=== PATIENT | female | born 1950 | race American Indian/Alaskan Native ===

== ENCOUNTER 2018-08-30 10:27 | Outpatient (CLI) | payer MEDICARE, OTHER ==
--- NOTE | 2018-08-31 08:55 | Mammography Report ---
BILATERAL MAMMOGRAM: FINDINGS: There are scattered fibroglandular densities (approximately 25%-50% glandular). No mass, distortion, suspicious calcification, or skin change is seen. There is no significant change when compared to prior examination in April 2016. CAD was utilized. IMPRESSION: Negative mammogram. There is no mammographic evidence of malignancy. RECOMMENDATION: Follow-up per ACS guidelines. BI-RADS CATEGORY: 1 = Negative ACR BI-RADS MAMMOGRAPHIC CODES: 0 = Needs additional imaging evaluation; 1 = Negative; 2 = Benign; 3 = Probably benign; 4 = Suspicious; 5 = Malignant; 6 = Known biopsy-proven malignancy COMMENT: 1. Dense breast tissue, i.e., adenosis, fibrocystic changes, etc., may obscure an underlying neoplasm. 2. Approximately 10% of cancers are not detected with mammography. 3. A negative mammography report should not delay biopsy if a clinically suspicious mass is present. COMMENT: Patient follow-up letters are generated in [employer]
== END 2018-08-30 10:28 | disposition home or self-care (01) ==
LOC: MAMMO 10:27
PROVIDERS: ATTEND Family Medicine Adult Medicine
DX: Z12.31 Encounter for screening mammogram for malignant neoplasm of breast (principal)
CPT/HCPCS: 77067

== ENCOUNTER 2020-02-22 10:24 | Outpatient (CLI) | payer MEDICARE, OTHER ==
--- NOTE | 2020-02-23 08:54 | Mammography Report ---
DIGITAL SCREENING MAMMOGRAM WITH CAD, 02/22/2020 INDICATION: Routine screening mammography. SCREENING MAMMO TECHNIQUE: Digital bilateral 2D mammography was obtained in the craniocaudal and mediolateral obliq ue projections. This examination was interpreted with the benefit of Computer-Aided Detection analysi s. COMPARISON: 08/30/2018 FINDINGS: Breast Density: There are scattered areas of fibroglandular density. There is no evidence of dominant mass, suspicious calcifications or architectural distortion in eithe r breast. Benign-appearing right calcifications are stable. IMPRESSION: No evidence of malignancy Follow up recommendation: Routine yearly BI-RADS Category 2: Benign. A "normal" or negative report should not discourage follow up or biopsy of a clinically significant f inding. A written summary of these findings will be mailed to the patient. The patient will be entered into a mammography reporting system which will generate a reminder letter for the patient's next appointmen t at the appropriate interval. The [employer] recommends yearly mammograms starting at age 40 and continuing as l shekhar as a woman is in good health. Breast MRI is recommended for women with an approximate 20-25% or greater lifetime risk of breast cancer, including women with a strong family history of breast or ova brandie cancer or who have been treated for Hodgkin's disease. Signer Name: Devonte Sharma MD Signed: 02/23/2020 8:49 AM Workstation Name: [email or web address]
== END 2020-02-22 10:25 | disposition home or self-care (01) ==
LOC: MAMMO 10:24
PROVIDERS: ATTEND Family Medicine Adult Medicine
DX: Z12.31 Encounter for screening mammogram for malignant neoplasm of breast (principal)
CPT/HCPCS: 77067

== ENCOUNTER 2020-11-07 16:18 | Emergency (ER) | payer MEDICARE, OTHER ==
--- NOTE | 2020-11-07 20:13 | Emergency Department Report ---
ED General Adult HPI - General Chief complaint: Extremity Problem,Nontraumatic Stated complaint: MUSCLE CRAMPS/RU LEGS/DRAINAGE Time Seen by Provider: 11/07/20 20:06 Source: patient Mode of arrival: Ambulatory Limitations: No Limitations - History of Present Illness Initial comments: 69-year-old female patient with history of [place] presents to the emergency department with complaints of ongoing bilateral lower extremity redness/swelling/drainage for several months. Patient has reportedly been evaluated by 5 different physicians for this ongoing problem. She was seen at a local urgent care facility last week, who instructed her to come to the emergency department. She has been prescribed steroids and antibiotics for this issue without improvement. She underwent arterial duplex sonography of her lower extremities, which was unremarkable. Denies fever, chills, chest pain, paresthesias, numbness, weakness, abnormal bleeding/bruising. Denies all other complaints at this time. Severity scale (0 -10): 10 - Related Data Previous Rx's Medication Instructions Recorded Last Taken Type RX: Doxycycline Hyclate 100 mg PO BID 7 Days tablet. 11/07/20 Unknown Rx RX: Naproxen 500 mg PO BID #20 tablet 11/07/20 Unknown Rx Allergies Allergy/AdvReac Type Severity Reaction Status Date / Time No Known Allergies Allergy Unverified 09/26/14 13:42 ED Review of Systems ROS: Stated complaint: MUSCLE CRAMPS/RU LEGS/DRAINAGE Other details as noted in HPI Other: GENERAL: Negative for fever, chills, weight change, anorexia, fatigue. ENT: Negative for ear pain, difficulty hearing, sore throat, nasal congestion, epistaxis. CARDIOVASCULAR: Negative for chest pain, palpitations, lower extremity swelling. PULMONARY: Negative for cough, dyspnea, wheezing, orthopnea, cyanosis. GASTROINTESTINAL: Negative for abdominal pain, nausea, vomiting, diarrhea, constipation. MUSCULOSKELETAL: Negative for joint pain, joint swelling, myalgias, back pain, neck pain. NEUROLOGICAL: Negative for headache, seizure, syncope, paresthesias, weakness. INTEGUMENTARY: Positive for redness/swelling/drainage. HEMATOLOGICAL: Negative for hemoptysis, hematemesis, hematochezia, hematuria. PSYCHIATRIC: Negative for hallucinations, suicidal ideation, homicidal ideation, anxiety, depression. ED Past Medical Hx - Past Medical History Previous Medical History?: Yes - Surgical History Additional Surgical History: back surgery - Medications Home Medications: Home Medications Medication Instructions Recorded Confirmed Last Taken Type RX: Doxycycline Hyclate 100 mg PO BID 7 Days tablet. 11/07/20 Unknown Rx RX: Naproxen 500 mg PO BID #20 tablet 11/07/20 Unknown Rx ED Physical Exam - General Limitations: No Limitations - Other Other exam information: General: Awake, appropriately interactive, no acute distress. Neck: Supple. Full range of motion intact. Cardiovascular: Regular rate and rhythm. Normal peripheral perfusion. Pulmonary: Clear to auscultation bilaterally. No respiratory distress. Patient is speaking normally without use of accessory muscles. Skin: Bilateral lower extremity edema with diffuse erythema and multiple chronic wounds to the anterior aspect of the lower extremities with serous drainage present. No crepitus. No necrosis. Pain is appropriately proportional to exam findings. Distal neurovascular and motor/sensory function intact. Brisk capillary refill. Dorsalis pedis pulses equal and present. Neurological: No facial asymmetry. Speech is clear. Follows commands. Patient is alert and oriented. Musculoskeletal: Moves all four extremities spontaneously with normal range of motion. Psych: Cooperative. Appropriate mood and affect. ED Course Vital Signs 11/07/20 18:29 Temperature 99.1 F Pulse Rate 106 H Respiratory 18 Rate Blood Pressure 173/72 [Right] O2 Sat by Pulse 96 Oximetry ED Medical Decision Making - Medical Decision Making Differential diagnosis including but not limited to: necrotizing soft tissue infection, abscess, cellulitis, erysipelas, pyoderma gangrenosum, arterial occlusion, deep vein thrombosis, venous stasis ulcers Patient presents to the emergency department with complaints of chronic lower extremity wounds. This is patient's sixth evaluation for this issue. She has been seen by primary care, cardiology, dermatology, and urgent care. She is afebrile, hemodynamically stable, ambulatory without assistance, neurovascularly intact. Initial tachycardia resolved without intervention. Repeat heart rate 88 bpm. Recent arterial duplex sonography of bilateral lower extremities was unremarkable. Patient states she has not been evaluated for deep vein thrombosis; venous duplex sonography in the emergency department without evidence of DVT. Fingerstick glucose obtained for evaluation of possible concomitant diabetes; BGL within normal limits. Patient has been applying topical steroids and taking Keflex with limited relief. She will be prescribed a short course of Doxycycline for MRSA coverage and referred to wound clinic for further evaluation and definitive management. Cultures obtained and wound dressings changed in the emergency department. Patient expressed understanding and is agreeable to plan of care. Strict return precautions provided. Repeat exam is unremarkable and benign. History, exam, diagnostic testing, and current condition do not suggest worrisome pathology to warrant further testing, continued ED treatment, admission, or surgical evaluation at this point. Given the low probability of a significant medical illness, it would be more likely to result in harm than benefit to perform further testing at this stage. Discussed findings, presumptive diagnosis, need for follow-up and specific signs/symptoms that should prompt immediate return to the emergency department. Instructions were explained in detail to the patient in addition to giving written discharge information. Patient expressed understanding and was given the opportunity to ask questions, all of which were satisfactorily answered prior to discharge home. Of note, patient's blood pressure was noted to be elevated in the emergency department. Patient reports no prior history of hypertension. Specifically den ies chest pain, shortness of breath, palpitations, syncope, headache, vision changes. Neurological exam is nonfocal and remainder of vital signs are stable. No clinical indication for further diagnostic work-up and/or initiation of antihypertensive therapy at this time per ACEP asymptomatic hypertension guidelines. Patient was encouraged to follow-up with primary care provider for blood pressure recheck. Lifestyle modifications recommended. Critical care attestation.: If time is entered above; I have spent that time in minutes in the direct care of this critically ill patient, excluding procedure time. ED Disposition Clinical Impression: Chronic wound of extremity, Elevated blood pressure reading without diagnosis of hypertension Disposition: DC-01 TO HOME OR SELFCARE Is pt being admited?: No Does the pt Need Aspirin: No Condition: Stable Instructions: Wound Care, Adult Additional Instructions: Take Tylenol every 4 hours as needed for pain. Take Naprosyn twice daily with food as needed for pain. Take Doxycycline with food as directed. Avoid prolonged sun exposure while taking this medication. Reduce your dietary sodium intake. Exercise daily. Follow-up with your primary care provider for wound re-evaluation and blood pressure recheck. Call tomorrow to schedule an appointment. See referral information below. Follow-up with general surgeon and/or wound care for further evaluation and definitive management. Call tomorrow to schedule an appointment. See referral information below. Return to the emergency department immediately for new or worsening symptoms. Prescriptions: RX: Doxycycline Hyclate 100 mg PO BID 7 Days tablet. RX: Naproxen 500 mg PO BID #20 tablet Referrals: PRIMARY CAREMD [Primary Care Provider] - 3-5 Days MARTIN HYATT MD [Staff Physician] - 3-5 Days [facility] [Outside] - 3-5 Days Time of Disposition: 23:11
--- NOTE | 2020-11-07 22:29 | Vascular Lab Report ---
DUPLEX DOPPLER LOWER EXTREMITY VEINS, BILATERAL INDICATION / CLINICAL INFORMATION: pain/swelling bilat legs. TECHNIQUE: Duplex doppler imaging was performed through the veins of both lower extremities using venous neville nahum and other maneuvers. COMPARISON: None available. FINDINGS: RIGHT COMMON FEMORAL VEIN: Negative. RIGHT FEMORAL VEIN: Negative. RIGHT POPLITEAL VEIN: Negative. RIGHT CALF VEINS: Negative. LEFT COMMON FEMORAL VEIN: Negative. LEFT FEMORAL VEIN: Negative. LEFT POPLITEAL VEIN: Negative. LEFT CALF VEINS: Negative. ADDITIONAL FINDINGS: Swelling and edema noted of the distal lower extremities minimally limits evalua tion. IMPRESSION: 1. No sonographic evidence for DVT in the visualized vessels of bilateral lower extremity. Signer Name: Alvarado Sousa MD Signed: 11/07/2020 10:24 PM Workstation Name: [id number]
[2020-11-08 02:14] VITALS: BP 175/65
== END 2020-11-08 02:14 | disposition home or self-care (01) ==
LOC: ED 16:18
DX: L97.929 Non-pressure chronic ulcer of unspecified part of left lower leg with unspecified severity (principal); L97.919 Non-pressure chronic ulcer of unspecified part of right lower leg with unspecified severity; R03.0 Elevated blood-pressure reading, without diagnosis of hypertension; Z98.890 Other specified postprocedural states; Z79.899 Other long term (current) drug therapy
CPT/HCPCS: 82962; 87076; 87116; 87186; 93970

== ENCOUNTER 2020-11-11 11:18 | Outpatient (CLI) | payer MEDICARE, OTHER ==
[2020-11-11] MEDS ORDERED: LIDOCAINE (4%) 40 MG/ML TOPICAL SOLN 50 ML BOTTLE TP ONE (11:26)
== END 2020-11-11 11:19 | disposition home or self-care (01) ==
LOC: WOUND 11:18
PROVIDERS: ATTEND Surgery
DX: I87.313 Chronic venous hypertension (idiopathic) with ulcer of bilateral lower extremity (principal); L97.812 Non-pressure chronic ulcer of other part of right lower leg with fat layer exposed; L97.822 Non-pressure chronic ulcer of other part of left lower leg with fat layer exposed; I25.10 Atherosclerotic heart disease of native coronary artery without angina pectoris; E78.00 Pure hypercholesterolemia, unspecified
CPT/HCPCS: 11042; 11045; G0463; 99204; 99214

== ENCOUNTER 2020-11-25 10:25 | Outpatient (CLI) | payer MEDICARE, OTHER ==
[2020-11-25] MEDS ORDERED: LIDOCAINE (4%) 40 MG/ML TOPICAL SOLN 50 ML BOTTLE TP ONE (10:45)
[2020-11-25] MEDS ORDERED: SILVER NITRATE APPLICATOR 1 EA TP ONE (12:49)
== END 2020-11-25 10:26 | disposition home or self-care (01) ==
LOC: WOUND 10:25
PROVIDERS: ATTEND Surgery
DX: I87.313 Chronic venous hypertension (idiopathic) with ulcer of bilateral lower extremity (principal); L97.812 Non-pressure chronic ulcer of other part of right lower leg with fat layer exposed; L97.822 Non-pressure chronic ulcer of other part of left lower leg with fat layer exposed; I25.10 Atherosclerotic heart disease of native coronary artery without angina pectoris; E78.00 Pure hypercholesterolemia, unspecified
CPT/HCPCS: 87075; 87076; 87116; 87186

== ENCOUNTER 2020-11-27 09:00 | Outpatient (CLI) | payer MEDICARE, OTHER ==
--- NOTE | 2020-11-27 14:48 | Vascular Lab Report ---
DOPPLER ULTRASOUND LOWER EXTREMITY VENOUS MAPPING, BILATERAL INDICATION: CHRONIC VENOUS HYPERTENSION TECHNIQUE: Grayscale, color and spectral Doppler imaging of the venous system of the right and left lower extrem ities was performed. COMPARISON: Prior bilateral lower extremity venous ultrasound 11/07/2020. FINDINGS: RIGHT LOWER EXTREMITY: DVT (Y/N) = No. Great Saphenous Vein (diameter in cm): - Thigh Proximal: 0.56 - Thigh Mid: 0.34 - Thigh Distal: 0.38 - Calf Proximal: 0.30 - Calf Mid: 0.24 Small Saphenous Vein (diameter in cm): - Calf Proximal: 0.26 - Calf Mid: 0.22 Reflux noted in the deep system within the external iliac vein and common femoral vein and right supe rficial femoral vein. Additionally the right saphenous femoral junction dimension reflux. LEFT LOWER EXTREMITY: DVT (Y/N) = No. Great Saphenous Vein (diameter in cm): - Thigh Proximal: 0.5 - Thigh Mid: 0.27 - Thigh Distal: 0.35 - Calf Proximal: 1.3 - Calf Mid: 0.21 Small Saphenous Vein (diameter in cm): - Calf Proximal: 0.48 - Calf Mid: 0.32 - Calf Distal: 0.19 Reflux noted in the deep system within the external iliac vein and common femoral vein. Additional Findings: None. IMPRESSION: 1. No sonographic evidence of deep venous thrombosis. 2. Lower extremity venous mapping as above. 3. Venous reflux demonstrated bilaterally, as described above. Signer Name: Alvarado Sousa MD Signed: 11/27/2020 2:44 PM Workstation Name: [id number]
--- NOTE | 2020-11-27 15:21 | Vascular Lab Report ---
DUPLEX DOPPLER LOWER EXTREMITY ARTERIAL, BILATERAL INDICATION / CLINICAL INFORMATION: ULCER. TECHNIQUE: Arterial duplex examination of both lower extremities performed using B-mode, color flow a nd spectral Doppler assessment. FINDINGS: RIGHT: Common Femoral Artery: PSV 163 cm/sec. Triphasic waveform. Proximal SFA: PSV 166 cm/sec. Triphasic waveform. Mid SFA: PSV 197 cm/sec. Triphasic waveform. Distal SFA: PSV 153 cm/sec. Triphasic waveform. Popliteal artery: PSV 25 cm/sec. Triphasic waveform. Posterior tibial artery: PSV 137 cm/sec. Triphasic waveform. Dorsalis Pedis Artery: PSV 111 cm/sec. Biphasic waveform. LEFT: Common Femoral Artery: PSV 184 cm/sec. Triphasic waveform. Proximal SFA: PSV 192 cm/sec. Triphasic waveform. Mid SFA: PSV 128 cm/sec. Triphasic waveform. Distal SFA: PSV 130 cm/sec. Monophasic waveform. Popliteal artery: PSV 164 cm/sec. Monophasic waveform. Posterior tibial artery: PSV 76 cm/sec. Triphasic waveform. Dorsalis Pedis Artery: PSV 84 cm/sec. Biphasic waveform. Right LIBBY: Not performed. Left LIBBY: Not performed. IMPRESSION: 1. Multifocal atherosclerotic disease is present within both lower extremities. Transitions in wavefo joel are noted bilaterally, left greater than right, indicating probable upstream stenoses in each res pective segment. CTA of the lower extremities/angiography suggested for further evaluation. Ankle-Brachial Index (LIBBY): - Calcified arteries > 1.4 - Normal = 0.9-1.4 - Mild PAD = 0.7-0.89 - Moderate PAD = 0.51-0.69 - Severe PAD < 0.5 Doppler Waveform: - Triphasic is normal. - Biphasic is abnormal if clear transition from triphasic signal along vascular tree. - Monophasic is abnormal. Scribed by: Sarita Viera RDMS, RVT Scribed: 11/27/2020 2:13 PM Signer Name: Ollie Mccauley MD Signed: 11/27/2020 3:16 PM Workstation Name: [email or web address]
== END 2020-11-27 09:01 | disposition home or self-care (01) ==
LOC: VAS 09:00
PROVIDERS: ATTEND Surgery
DX: I87.313 Chronic venous hypertension (idiopathic) with ulcer of bilateral lower extremity (principal)
CPT/HCPCS: 93925; 93970

== ENCOUNTER 2020-12-11 09:57 | Outpatient (CLI) | payer MEDICARE, OTHER ==
[2020-12-11] MEDS ORDERED: LIDOCAINE (4%) 40 MG/ML TOPICAL SOLN 50 ML BOTTLE TP ONE (11:18)
== END 2020-12-11 09:58 | disposition home or self-care (01) ==
LOC: WOUND 09:57
PROVIDERS: ATTEND Surgery
DX: I87.313 Chronic venous hypertension (idiopathic) with ulcer of bilateral lower extremity (principal); L97.812 Non-pressure chronic ulcer of other part of right lower leg with fat layer exposed; L97.822 Non-pressure chronic ulcer of other part of left lower leg with fat layer exposed; I25.10 Atherosclerotic heart disease of native coronary artery without angina pectoris; E78.00 Pure hypercholesterolemia, unspecified; I25.2 Old myocardial infarction; Z79.82 Long term (current) use of aspirin

== ENCOUNTER 2021-01-06 13:24 | Outpatient (CLI) | payer MEDICARE ==
[2021-01-06] MEDS ORDERED: SILVER NITRATE APPLICATOR 1 EA TP ONE (13:42)
[2021-01-06] MEDS ORDERED: LIDOCAINE (4%) 40 MG/ML TOPICAL SOLN 50 ML BOTTLE TP ONE (13:52)
[2021-01-06] MEDS ORDERED: SODIUM CHLORIDE 0.9% IRR 500 ML BOTTLE IR ONE (14:41)
== END 2021-01-06 13:25 | disposition home or self-care (01) ==
LOC: WOUND 13:24
PROVIDERS: ATTEND Surgery
DX: I87.313 Chronic venous hypertension (idiopathic) with ulcer of bilateral lower extremity (principal); L97.812 Non-pressure chronic ulcer of other part of right lower leg with fat layer exposed; L97.822 Non-pressure chronic ulcer of other part of left lower leg with fat layer exposed; I25.10 Atherosclerotic heart disease of native coronary artery without angina pectoris; E78.00 Pure hypercholesterolemia, unspecified; I25.2 Old myocardial infarction; Z79.82 Long term (current) use of aspirin
CPT/HCPCS: 11042; 11045; G0463; 99212

== ENCOUNTER 2021-02-25 10:05 | Outpatient (CLI) | payer MEDICARE, OTHER ==
--- NOTE | 2021-02-25 11:49 | Mammography Report ---
DIGITAL SCREENING MAMMOGRAM WITH CAD, 02/25/2021 CLINICAL INFORMATION / INDICATION: Routine screening mammography. SCRN MAMMO TECHNIQUE: Digital bilateral 2D mammography was obtained in the craniocaudal and mediolateral obliqu e projections. This examination was interpreted with the benefit of Computer-Aided Detection analysis . COMPARISON: 03/04/10 through 02/22/20. FINDINGS: Breast Density: There are scattered areas of fibroglandular density. No dominant mass, suspicious calcifications, or architectural distortion in either breast. There are a few benign secretory calcifications in the right breast. IMPRESSION: No mammographic evidence of malignancy. Follow up recommendation: Routine yearly BI-RADS Category 2: Benign. A "normal" or negative report should not discourage follow up or biopsy of a clinically significant f inding. A written summary of these findings will be mailed to the patient. The patient will be entered into a mammography reporting system which will generate a reminder letter for the patient's next appointmen t at the appropriate interval. The [employer] recommends yearly mammograms starting at age 40 and continuing as l shekhar as a woman is in good health. Breast MRI is recommended for women with an approximate 20-25% or greater lifetime risk of breast cancer, including women with a strong family history of breast or ova brandie cancer or who have been treated for Hodgkin's disease. Signer Name: Unruly Seaman MD Signed: 02/25/2021 11:45 AM Workstation Name: [email or web address]
--- NOTE | 2021-02-25 12:37 | Mammography Report ---
DEXA BONE DENSITY SCAN INDICATION / CLINICAL INFORMATION: DEXA SCRN. 70 years Female COMPARISON: 04/29/2016 LUMBAR SPINE, L1 L3: - Bone mineral density (BMD) = 1.393 g/cm2. - T-score = 3.4 - Z-score = 4.6 Change (%) since most recent prior (if available): 11.3 Change (%) since most recent prior (if available): None available. LEFT HIP, TOTAL : - Bone mineral density (BMD) = 1.155 g/cm2. - T-score = 1.7 - Z-score = 1.9 Change (%) since most recent prior (if available): -5.3 IMPRESSION: 1. WHO Classification: Normal bone density. Fracture Risk: Not Increased. 2. 10-Year Fracture Risk (FRAX) = Major Osteoporotic Not reported.% / Hip: Not reported.% FRAX generally not reported for patients with normal or osteoporotic BMD, in [id number] teri ents younger than age 50, or in patients undergoing pharmacotherapy BMD Reporting Guidelines (ISCD, 2015) BMD Reporting in Postmenopausal Women and in Men Age 50 and Older - T-scores are preferred. - The WHO densitometric classification is applicable. BMD Reporting in Females Prior to Menopause and in Males Younger Than Age 50 - Z-scores, not T-scores, are preferred. This is particularly important in children. - A Z-score of -2.0 or lower is defined as below the expected range for age, and a Z-score above -2.0 is within the expected range for age. - Osteoporosis cannot be diagnosed in men under age 50 on the basis of BMD alone. - The WHO diagnostic criteria may be applied to women in the menopausal transition. http://www.iscd.org/official-positions/6125-tiid-zdljtxvu-positions-adult/ Signer Name: Vern Kaufman DO Signed: 02/25/2021 12:33 PM Workstation Name: [id number]
== END 2021-02-25 10:06 | disposition home or self-care (01) ==
LOC: MAMMO 10:05
PROVIDERS: ATTEND Family Medicine Adult Medicine
DX: Z12.31 Encounter for screening mammogram for malignant neoplasm of breast (principal); Z13.820 Encounter for screening for osteoporosis; Z78.0 Asymptomatic menopausal state
CPT/HCPCS: 77067; 77080